=== PATIENT | male | born 1995 | race Caucasian/White ===

== ENCOUNTER 2024-01-16 21:53 | Emergency (ER) | payer OTHER, SELFPAY ==
--- NOTE | ~2024-01-16 | CT_ITS ---
Non-contrast CT scan of the Abdomen and Pelvis Clinical indication: Left lower quadrant pain Technique: 2.5 mm axial scans were obtained through the abdomen and pelvis without intravenous or or al contrast. Dose reduction technique was used on this scan by utilizing automated exposure control a nd iterative reconstruction technique. The dose-length product (DLP) was 802.01 mGy-cm. Findings: Images through the lung bases reveal no abnormalities. There is a 3 mm proximal left ureteral stone (axial image 103), with minimal left hydronephrosis. The re are additional small bilateral nonobstructing renal calculi, measuring up to [address] maximum [address]ame ter. Left renal cyst present. No right ureteral stone or right hydronephrosis. The liver, spleen, pancreas, gallbladder, and adrenals appear normal. There is no aortic aneurysm. There is no evidence of bowel obstruction. Images through the pelvis were performed. There is no evidence of ascites or lymphadenopathy. Urinary bladder unremarkable. No pelvic mass seen. Impression: 3 mm proximal left ureteral stone, with mild left hydronephrosis. Additional small bilateral nonobstructing renal stones, as detailed above. Reviewed, dictated and finalized at [facility]. Impression: 3 mm proximal left ureteral stone, with mild left hydronephrosis. Additional small bilateral nonobstructing renal stones, as detailed above.
[2024-01-16 21:56] VITALS: BP 156/102; PULSE 120; RESP 22; TEMP 36.6; O2SAT 99
[2024-01-16] MEDS: SODIUM CHLORIDE 0.9% IV 1,000 ML 999 ML IV CONT (22:45)
[2024-01-16] MEDS: KETOROLAC 15 MG/ML VIAL (*BKC) IV PUSH (22:45)
[2024-01-16 22:54] LABS: Basophils Absolute Auto 0.1 K/mm3 (0.0-0.1); Basophils Percent Auto 0.8 % (0.2-1.2); Eosinophils Absolute Auto 0.1 K/mm3 (0-0.3); Eosinophils Percent Auto 0.8 % (0-4.4); Hemoglobin 16.5 g/dL (14.0-18.0); Immature Granulocyte Absolute 0.03 K/mm3 (0.00-0.031); Immature Granulocyte Percent A 0.3 % (0-0.5); Lymphocytes Absolute Auto 2.05 K/mm3 (0.9-3.2); Lymphocytes Percent Auto 17.2 % (18.3-44.2); Mean Corpuscular HGB Conc 36.7 g/dl (32-36); Mean Corpuscular Volume 87.4 fl (80-100); Mean Platelet Volume 9.7 fl (7.4-10.4); Monocytes Absolute Auto 0.6 K/mm3 (0.1-0.6); Monocytes Percent Auto 4.7 % (2.6-8.5); Neutrophils Absolute Auto 9.1 K/mm3 (1.3-6.7); Neutrophils Percent Auto 76.2 % (45.5-73.1); Platelet Count Result 268 k/mm3 (150-375); Red Blood Count 5.15 M/mm3 (4.6-6.20); Red Cell Distribution Width 12.6 % (11.5-14.5)
[2024-01-16 23:05] LABS: Alanine Aminotransferase 44 U/L (6-50); Albumin Level 4.9 g/dL (3.5-5.1); Alkaline Phosphatase 56 U/L (38-126); Anion Gap 11 mmol/L (4-12); Aspartate Amino Transferase 34 U/L (17-59); Bilirubin,Total 0.9 mg/dL (0.2-1.3); Blood Urea Nitrogen 11 mg/dL (9-20); Calcium 9.5 mg/dL (8.4-10.2); Carbon Dioxide 27 mmol/L (22-30); Chloride 105 mmol/L (98-107); Estimated CRCL calculation 102 ml/min; Estimated Glomerular Filt Rate > 60; Glucose 107 mg/dL (65-110); Lipase 89 U/L (23-300); Potassium 3.6 mmol/L (3.4-5.0); Sodium 143 mmol/L (137-145)
[2024-01-16 23:41] LABS: Appearance Urine Cloudy (Clear); Bacteria Urine None Seen /hpf; Bilirubin Urine Negative (Negative); Blood Urine 3+ (Negative); Color Urine Yellow (Yellow); Glucose Urine UA Negative (Negative); Ketones Urine Trace mg/dL (Negative); Leukocyte Esterase Ur Trace LEU/UL (Negative); Nitrate Urine Negative (Negative); Non Pathogenic Casts 0-2; Protein Urine 1+ mg/dL (Negative); RBC Urine >100 /hpf (0-2); Specific Grav Ur 1.024 (1.001-1.035); Squamous Epithelial Cell Urine None Seen /hpf (Few)
[2024-01-16 23:44] LABS: Add Urine Microscopic? YES
--- NOTE | 2024-01-17 00:14 | ED.ABDPAIN ---
HPI - Abdominal Pain General Chief Complaint: Abdominal Pain Stated Complaint: Left sided lower abd pain, nausea Time Seen by Provider: 01/16/24 23:16 Source: patient Mode of arrival: ambulatory Limitations: no limitations History of Present Illness HPI narrative: Patient is a 29-year-old male who presents the ED with report of left lower quadrant abdominal pain. Patient reports having dull left-sided abdominal pain throughout the day today. He began having worsening pain throughout his left lower abdomen approximately 2 hours prior to arrival. States pain was very severe and came on suddenly. Very mild radiation of pain to left flank region. Associated with nausea and vomiting. Patient reports history of 1 previous kidney stones and states pain feels similar. Denies difficulty urinating, dysuria, hematuria. Denies fevers. Denies diarrhea or constipation. Related Data Allergies Allergy/AdvReac Type Severity Reaction Status Date / Time lamotrigine [From Lamictal] Allergy Rash Verified 01/16/24 21:55 Review of Systems Review of Systems: CONSTITUTIONAL: Denies fever, chills, or sweats. GASTROINTESTINAL: See HPI. GENITOURINARY: Denies dysuria or hematuria. MUSCULOSKELETAL: See HPI. All systems reviewed & are unremarkable except as noted in HPI and below Exam Narrative: GENERAL: Well appearing, obese with BMI of 31.1, non-toxic, in no acute distress. HEAD: Normocephalic, atraumatic. RESPIRATORY: Airway patent, respirations nonlabored. Clear to auscultation bilaterally, no rales, rhonchi, wheezing. CARDIOVASCULAR: Regular rate and rhythm without murmurs, rubs, or gallops. ABDOMINAL: Soft, very mild tenderness in left lower quadrant. Nondistended. Normoactive BS. No significant CVA tenderness to percussion. MUSCULOSKELETAL: Moves all extremities. No gross deformities. SKIN: Warm, dry, normal color. NEURO: A&O X3. Speech clear. Cranial nerves II-XII grossly intact. Steady gait. No ataxic movements. PSYCHIATRIC: Appropriate mood and affect. Normal interaction. Course Vital Signs Vital signs: Vital Signs Temperature 97.8 F 01/16/24 21:56 Pulse Rate 120 H 01/16/24 21:56 Respiratory Rate 22 H 01/16/24 21:56 Blood Pressure 156/102 H 01/16/24 21:56 Pulse Oximetry 99 01/16/24 21:56 Oxygen Delivery Room Air 01/16/24 21:56 Temperature 97.8 F 01/16/24 21:56 Pulse Rate 120 H 01/16/24 21:56 Respiratory Rate 22 H 01/16/24 21:56 Blood Pressure 156/102 H 01/16/24 21:56 Pulse Oximetry 99 01/16/24 21:56 Oxygen Delivery Room Air 01/16/24 21:56 MDM - Abdominal Pain MDM Narrative Medical decision making narrative: Patient presented to ED with sudden onset of left lower quadrant abdominal pain that began just prior to arrival. History of kidney stones of felt similar. Patient initially mildly tachycardic upon arrival, likely in relation to pain. Fluids initiated. Toradol was given from triage. Upon my evaluation, patient denies any active pain. States he feels much better after Toradol. CBC with white blood cell count of 12.0. CMP with stable electrolytes, stable kidney function. UA with lots of blood, 6-10 white blood cells, no urine bacteria seen. Sent for culture. CT scan of abdomen pelvis was obtained and showing 2 mm left mid ureteral stone. Consistent with exam and clinical picture. Patient was updated on imaging findings. He remains pain-free at this time. Feel he is safe for discharge home close outpatient follow-up. Will send prescriptions for pain medicine, nausea medicine, Flomax for home use. Will provide Urology information for follow-up. Given strict return precautions. He agrees with plan. Discharged in stable condition. Medical Records Attestation: I reviewed the patient's medical records. Lab Data Attestation: I reviewed the patient's lab results. 01/16/24 22:46 01/16/24 22:46 Labs: Lab Results 01/16/24 01/16/24
[2024-01-17] MEDS: SODIUM CHLORIDE 0.9% IV 1,000 ML 999 ML IV CONT (00:27)
[2024-01-17] MEDS: TAMSULOSIN HCL 0.4 MG CAPSULE PO (01:17)
[2024-01-17 01:18] VITALS: BP 136/95; PULSE 105; RESP 15; O2SAT 98
== END 2024-01-17 01:30 | disposition home or self-care (01) ==
PROVIDERS: Emergency Medicine; Emergency Provider Physician Assistant; PCP Nurse Practitioner Family
DX: N13.2 Hydronephrosis with renal and ureteral calculous obstruction (principal)
CPT/HCPCS: 36415; 74176; 80053; 81001; 83690; 85025; 87086; 96361; 96374; 99284; A9270; J1885; J7030

== ENCOUNTER 2025-06-12 17:16 | Emergency (ER) | payer BC, SELFPAY ==
[2025-06-12] VITALS (11 sets, daily range): BP systolic 141–153; BP diastolic 104–110; PULSE 95–133; RESP 9–16; TEMP 36.6–36.8; O2SAT 97–100
--- NOTE | ~2025-06-12 | XR_ITS ---
EXAMINATION: XR chest 2V, 06/12/2025 18:05 DISPATCHER CLERK HISTORY: chest tightness COMPARISON: No comparisons available. Technique: 2 views obtained. Findings: The lungs are clear, no effusion. No pneumothorax. Heart is normal size. Mediastinal and hilar contours are within normal limits. Bony thorax no acute abnormality. Impression: No acute cardiopulmonary abnormality. Reviewed, dictated and finalized at location P. ATCHER CLERK Impression: No acute cardiopulmonary abnormality.
--- NOTE | 2025-06-12 17:23 | ECG_ITS ---
Test Date: 2025-06-12 17:41:43 Measurements Intervals [place] Rate: 114 P: 43 VA: 116 QRS: 0 QRSD: 104 T: 29 QT: 332 QTc: 458 Interpretive Statements SINUS TACHYCARDIA WITH SHORT VA INTERVAL INCOMPLETE RIGHT BUNDLE BRANCH BLOCK [90+ ms QRS DURATION, TERMINAL R IN V1/V2, BORDERLINE ECG No previous ECG available for comparison Electronically Signed On 06-13-2025 09:14:32 CURRENCY MACHINE OPERATOR by Darwin Frye M.D.
--- NOTE | 2025-06-12 17:41 | ED_ITS ---
HPI - Chest Pain General Chief Complaint: Chest Pain Stated Complaint: chest pain Time Seen by Provider: 06/12/25 17:23 History of Present Illness HPI narrative: Patient is a 30-year-old male who presents to the ER her chest tightness on his left side, mild shortness of breath, and elevated blood pressure readings. He reports this morning he was ?jolted awake by chest tightness. Patient reports he pre-emptive leak called EMS and when they arrived his blood pressure was 180s over 120s. He reports they also told him his blood sugar was low (in the 50s). Patient reports he started feeling better upon EMS arrival and declined transfer to the ER. Patient reports his symptoms have resumed at this time. He denies any recent fevers, back pain, or abdominal pain. 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 He denies any recent drug, alcohol, or energy drink use. Related Data Allergies Allergy/AdvReac Type Severity Reaction Status Date / Time lamotrigine (From Lamictal) Allergy Rash Verified 01/16/24 21:55 Review of Systems 2 Review of Systems: All systems reviewed & are unremarkable except as noted in HPI and below Exam 2 Narrative: GENERAL: Well appearing, well-nourished, non-toxic, in no acute distress. HEAD: Normocephalic, atraumatic. NECK: Supple. No adenopathy, no masses. RESPIRATORY: Airway patent, respirations nonlabored. Clear to auscultation bilaterally, no rales, rhonchi, wheezing. CARDIOVASCULAR: Tachycardia without murmurs, rubs, or gallops. Peripheral pulses 2+ and equal bilaterally. ABDOMINAL: Soft, nontender, nondistended, no hepatosplenomegaly. Normoactive BS. MUSCULOSKELETAL: Moves all extremities. Strength/ROM intact without gross deformities. SKIN: Warm, dry, normal color. No rashes. NEURO: A&O X3. Speech clear. Cranial nerves II-XII intact. No ataxic movements. PSYCHIATRIC: Appropriate mood and affect. Normal interaction. Course Vital Signs Vital signs: Vital Signs Temperature 36.6 C 06/12/25 17:18 Pulse Rate 133 H 06/12/25 17:18 Blood Pressure 152/110 H 06/12/25 17:18 Pulse Oximetry 97 06/12/25 17:18 Temperature 36.8 C 06/12/25 19:46 Pulse Rate 96 06/12/25 20:45 Respiratory Rate 14 06/12/25 20:45 Blood Pressure 144/108 H 06/12/25 20:31 Pulse Oximetry 98 06/12/25 20:45 Oxygen Delivery Room Air 06/12/25 19:22 MDM - Chest Pain MDM Narrative Medical decision making narrative: Patient is a 30-year-old male who presents to the ER her chest tightness on his left side, mild shortness of breath, and elevated blood pressure readings. He reports this morning he was ?jolted awake by chest tightness. Patient reports he pre-emptive leak called EMS and when they arrived his blood pressure was 180s over 120s. He reports they also told him his blood sugar was low (in the 50s). Patient reports he started feeling better upon EMS arrival and declined transfer to the ER. Patient reports his symptoms have resumed at this time. He denies any recent fevers, back pain, or abdominal pain. 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 He denies any recent drug, alcohol, or energy drink use. Labs Ordered: CBC, CMP, D-dimer, PTT, INR, troponin, TSH, lactic acid, lipase, UA, UDS Imaging Ordered: Chest x-ray Medications Ordered: 1 L normal saline IV bolus Results: Patient's chest x-ray indicates The lungs are clear, no effusion. No pneumothorax. Heart is normal size. Mediastinal and hilar contours are within normal limits. Bony thorax no acute abnormality. Diagnosis: atypical chest pain, hypertension, palpations Risks: HEART score: low risk HEART Score for Major Cardiac Events from [email or web address] on 06/12/2025 All calculations should be rechecked by clinician prior to use RESULT SUMMARY: 1 points Low Score (0-3 points) Risk of MACE of 0.9-1.7%. INPUTS: History ?> 1 = Moderately suspicious EKG ?> 0 = Normal Age ?> 0 = <45 Risk factors ?> 0 = No known risk factors Initial troponin ?> 0 = <Normal limit Consults: cardiology (outpatient), Dr. Frye Patient Education/Shared MDM: Results of lab work and imaging shared with patient. He reports he has not had any continuing symptoms during his stay in the emergency department. Patient strongly advised to maintain hydration status upon discharge and follow-up with his PCP as soon as possible. He reports he already has an appointment set up with his primary care provider on Saturday, in 3 days. Patient will not be discharged home with any new prescriptions. He may follow-up with Cardiology as needed. Strict return precautions provided. Patient verbalized understanding and is in agreement with plan. Vital signs stable at time of discharge. All questions answered. Differential Diagnosis Differential diagnosis: Likely atypical chest pain, st elevation myocardial infarction, costochondritis and other (dehydration) Lab Data Attestation: I reviewed the patient's lab results. 06/12/25 17:47 06/12/25 17:47 Labs: Lab Results 06/12/25 06/12/25 06/12/25 Range/Units 17:47 17:47 17:47 WBC 7.7 (4.5-10.0) K/mm3 RBC 5.32 (4.6-6.20) M/mm3 Hgb 16.7 (14.0-18.0) g/dL Hct 45.8 (42.0-52.0) % MCV 86.1 (80-100) fl MCH 31.4 (26-34) pg MCHC 36.5 H (32-36) g/dl RDW 12.7 (11.5-14.5) % Plt Count 249 (150-375) k/mm3 MPV 9.5 (7.4-10.4) fl Immature Gran % (Auto) 0.3 (0-0.5) % Neut % (Auto) 67.4 (45.5-73.1) % Lymph % (Auto) 23.2 (18.3-44.2) % [place] % (Auto) 6.4 (2.6-8.5) % Eos % (Auto) 1.4 (0-4.4) % Baso % (Auto) 1.3 H (0.2-1.2) % Lymph # (Auto) 1.79 (0.9-3.2) K/mm3 [place] # (Auto) 0.5 (0.1-0.6) K/mm3 Eos # (Auto) 0.1 (0-0.3) K/mm3 Baso # (Auto) 0.1 (0.0-0.1) K/mm3 Abs Immat Gran (auto) 0.02 (0.00-0.031) K/mm3 Absolute Neuts (auto) 5.2 (1.3-6.7) K/mm3 Absolute Nucleated RBC 0.000 (0.0-0.012) K/mm3 Nucleated RBC % 0.0 (0.0-0.2) % PT 13.7 (11.1-14.7) Seconds INR 1.1 APTT 28.0 (22.3-36.8) Seconds D-Dimer < 0.27 Cancelled (<0.48) ug/mL Sodium 137 (137-145) mmol/L Potassium 3.8 (3.4-5.0) mmol/L Chloride 103 (98-107) mmol/L Carbon Dioxide 27 (22-30) mmol/L Anion Gap 7 (4-12) mmol/L BUN 11 (9-20) mg/dL Creatinine 1.00 (0.7-1.3) mg/dL Estim Creat Clear Calc Not Reportable Estimated GFR > 60 (59 - ) Glucose 95 (65-110) mg/dL Lactic Acid (0.7-2.0) mmol/L Calcium 9.7 (8.4-10.2) mg/dL Total Bilirubin 0.9 (0.2-1.3) mg/dL AST 28 (17-59) U/L ALT 30 (6-50) U/L Alkaline Phosphatase 52 (38-126) U/L Troponin I < 0.012 (0.000-0.034) ng/mL NT-Pro-B Natriuret Pep 76 Cancelled (19.9-100) pg/mL Total Protein 7.8 (6.3-8.2) g/dL Albumin 4.6 (3.5-5.1) g/dL Lipase 64 (23-300) U/L TSH (Reflex) 1.800 (0.465-4.68) uIU/mL Urine Color (Yellow) Urine Appearance (Clear) Urine pH (5.0-9.0) Ur Specific [place] (1.001-1.035) Urine Protein (Negative) mg/dL Urine Glucose (UA) (Negative) mg/dL Urine Ketones (Negative) mg/dL Ur Blood (Man) (Negative) Urine Nitrate (Negative) Urine Bilirubin (Negative) Urine Urobilinogen (<2.0) mg/dL Leukocyte Esterase Rfl (Negative) KIKI/UL Urine RBC (0-2) /hpf Urine WBC (0-3) /hpf Ur Squamous Epith Cells (Few) /hpf Urine Bacteria /hpf Urine Casts Urine Opiates Screen (Negative) Urine Methadone Screen (Negative) Ur Barbiturates Screen (Negative) Ur Phencyclidine Scrn (Negative) Ur Amphetamine Screen (Negative) U Benzodiazepines Scrn (Negative) Urine Cocaine Screen (Negative) U Cannabinoids Screen (Negative) Influenza A (RT-PCR) (Negative) Influenza B (RT-PCR) (Negative) RSV (RT-PCR) (Negative) SARS-CoV-2 RNA (RT-PCR) (Negative) 06/12/25 06/12/25 06/12/25 Range/Units 17:51 19:25 20:14 WBC (4.5-10.0) K/mm3 RBC (4.6-6.20) M/mm3 Hgb (14.0-18.0) g/dL Hct (42.0-52.0) % MCV (80-100) fl MCH (26-34) pg MCHC (32-36) g/dl RDW (11.5-14.5) % Plt Count (150-375) k/mm3 MPV (7.4-10.4) fl Immature Gran % (Auto) (0-0.5) % Neut % (Auto) (45.5-73.1) % Lymph % (Auto) (18.3-44.2) % [place] % (Auto) (2.6-8.5) % Eos % (Auto) (0-4.4) % Baso % (Auto) (0.2-1.2) % Lymph # (Auto) (0.9-3.2) K/mm3 [place] # (Auto) (0.1-0.6) K/mm3 Eos # (Auto) (0-0.3) K/mm3 Baso # (Auto) (0.0-0.1) K/mm3 Abs Immat Gran (auto) (0.00-0.031) K/mm3 Absolute Neuts (auto) (1.3-6.7) K/mm3 Absolute Nucleated RBC (0.0-0.012) K/mm3 Nucleated RBC % (0.0-0.2) % PT (11.1-14.7) Seconds INR APTT (22.3-36.8) Seconds D-Dimer (<0.48) ug/mL Sodium (137-145) mmol/L Potassium (3.4-5.0) mmol/L Chloride (98-107) mmol/L Carbon Dioxide (22-30) mmol/L Anion Gap (4-12) mmol/L BUN (9-20) mg/dL Creatinine (0.7-1.3) mg/dL Estim Creat Clear Calc Estimated GFR (59 - ) Glucose (65-110) mg/dL Lactic Acid 1.7 (0.7-2.0) mmol/L Calcium (8.4-10.2) mg/dL Total Bilirubin (0.2-1.3) mg/dL AST (17-59) U/L ALT (6-50) U/L Alkaline Phosphatase (38-126) U/L Troponin I (0.000-0.034) ng/mL NT-Pro-B Natriuret Pep (19.9-100) pg/mL Total Protein (6.3-8.2) g/dL Albumin (3.5-5.1) g/dL Lipase (23-300) U/L TSH (Reflex) (0.465-4.68) uIU/mL Urine Color Yellow (Yellow) Urine Appearance Clear (Clear) Urine pH 7.0 (5.0-9.0) Ur Specific [place] 1.023 (1.001-1.035) Urine Protein Trace (Negative) mg/dL Urine Glucose (UA) Negative (Negative) mg/dL Urine Ketones Trace H (Negative) mg/dL Ur Blood (Man) Negative (Negative) Urine Nitrate Negative (Negative) Urine Bilirubin Negative (Negative) Urine Urobilinogen 1.0 (<2.0) mg/dL Leukocyte Esterase Rfl Trace H (Negative) KIKI/UL Urine RBC 0-2 (0-2) /hpf Urine WBC 0-5 (0-3) /hpf Ur Squamous Epith Cells None seen (Few) /hpf Urine Bacteria None seen /hpf Urine Casts 0-2 Urine Opiates Screen Negative (Negative) Urine Methadone Screen Negative (Negative) Ur Barbiturates Screen Negative (Negative) Ur Phencyclidine Scrn Negative (Negative) Ur Amphetamine Screen Negative (Negative) U Benzodiazepines Scrn Negative (Negative) Urine Cocaine Screen Negative (Negative) U Cannabinoids Screen Negative (Negative) Influenza A (RT-PCR) Negative (Negative) Influenza B (RT-PCR) Negative (Negative) RSV (RT-PCR) Negative (Negative) SARS-CoV-2 RNA (RT-PCR) Negative (Negative) 06/12/25 Range/Units 20:22 WBC (4.5-10.0) K/mm3 RBC (4.6-6.20) M/mm3 Hgb (14.0-18.0) g/dL Hct (42.0-52.0) % MCV (80-100) fl MCH (26-34) pg MCHC (32-36) g/dl RDW (11.5-14.5) % Plt Count (150-375) k/mm3 MPV (7.4-10.4) fl Immature Gran % (Auto) (0-0.5) % Neut % (Auto) (45.5-73.1) % Lymph % (Auto) (18.3-44.2) % [place] % (Auto) (2.6-8.5) % Eos % (Auto) (0-4.4) % Baso % (Auto) (0.2-1.2) % Lymph # (Auto) (0.9-3.2) K/mm3 [place] # (Auto) (0.1-0.6) K/mm3 Eos # (Auto) (0-0.3) K/mm3 Baso # (Auto) (0.0-0.1) K/mm3 Abs Immat Gran (auto) (0.00-0.031) K/mm3 Absolute Neuts (auto) (1.3-6.7) K/mm3 Absolute Nucleated RBC (0.0-0.012) K/mm3 Nucleated RBC % (0.0-0.2) % PT (11.1-14.7) Seconds INR APTT (22.3-36.8) Seconds D-Dimer (<0.48) ug/mL Sodium (137-145) mmol/L Potassium (3.4-5.0) mmol/L Chloride (98-107) mmol/L Carbon Dioxide (22-30) mmol/L Anion Gap (4-12) mmol/L BUN (9-20) mg/dL Creatinine (0.7-1.3) mg/dL Estim Creat Clear Calc Estimated GFR (59 - ) Glucose (65-110) mg/dL Lactic Acid (0.7-2.0) mmol/L Calcium (8.4-10.2) mg/dL Total Bilirubin (0.2-1.3) mg/dL AST (17-59) U/L ALT (6-50) U/L Alkaline Phosphatase (38-126) U/L Troponin I Pending (0.000-0.034) ng/mL NT-Pro-B Natriuret Pep (19.9-100) pg/mL Total Protein (6.3-8.2) g/dL Albumin (3.5-5.1) g/dL Lipase (23-300) U/L TSH (Reflex) (0.465-4.68) uIU/mL Urine Color (Yellow) Urine Appearance (Clear) Urine pH (5.0-9.0) Ur Specific [place] (1.001-1.035) Urine Protein (Negative) mg/dL Urine Glucose (UA) (Negative) mg/dL Urine Ketones (Negative) mg/dL Ur Blood (Man) (Negative) Urine Nitrate (Negative) Urine Bilirubin (Negative) Urine Urobilinogen (<2.0) mg/dL Leukocyte Esterase Rfl (Negative) KIKI/UL Urine RBC (0-2) /hpf Urine WBC (0-3) /hpf Ur Squamous Epith Cells (Few) /hpf Urine Bacteria /hpf Urine Casts Urine Opiates Screen (Negative) Urine Methadone Screen (Negative) Ur Barbiturates Screen (Negative) Ur Phencyclidine Scrn (Negative) Ur Amphetamine Screen (Negative) U Benzodiazepines Scrn (Negative) Urine Cocaine Screen (Negative) U Cannabinoids Screen (Negative) Influenza A (RT-PCR) (Negative) Influenza B (RT-PCR) (Negative) RSV (RT-PCR) (Negative) SARS-CoV-2 RNA (RT-PCR) (Negative) Imaging Data Attestation: I personally reviewed and interpreted this imaging study as follows: Radiologist's impression: Impressions Chest X-Ray 06/12/25 18:29 Impression: No acute cardiopulmonary abnormality. Discharge Plan Discharge Clinical Impression: Atypical chest pain Patient Disposition: Home Condition: Stable Instructions: Antibiotic Form, Noncardiac Chest Pain (ED) Patient Language: Romansh Prescriptions: No Action hydrocodone-acetaminophen 5-325 mg tablet 1 tablet PO Q6H PRN (Reason: pain) Qty: 10 0RF tamsulosin [Flomax] 0.4 mg capsule 0.4 mg PO DAILY Qty: 7 0RF ondansetron 4 mg tablet,disintegrating 4 mg PO Q8H PRN (Reason: nausea and vomiting) Qty: 15 0RF Follow-up/Referrals: KELSIE,LIZETT DE JESUS [Primary Care Provider]
[2025-06-12 17:56] LABS: Hematocrit 45.8 % (42.0-52.0); Hemoglobin 16.7 g/dL (14.0-18.0); Immature Granulocyte Percent A 0.3 % (0-0.5); Lymphocytes Absolute Auto 1.79 K/mm3 (0.9-3.2); Mean Corpuscular HGB Conc 36.5 g/dl (32-36); Mean Corpuscular Hemoglobin 31.4 pg (26-34); Mean Corpuscular Volume 86.1 fl (80-100); Nucleated Red Blood Cells Absolute Auto 0.000 K/mm3 (0.0-0.012); Nucleated Red Blood Cells Perc 0.0 % (0.0-0.2); Platelet Count Result 249 k/mm3 (150-375); Red Blood Count 5.32 M/mm3 (4.6-6.20); White Blood Count 7.7 K/mm3 (4.5-10.0)
[2025-06-12 18:08] LABS: INR 1.1; Prothrombin Time 13.7 Seconds (11.1-14.7)
[2025-06-12 18:09] LABS: Partial Thromboplastin Time 28.0 Seconds (22.3-36.8)
[2025-06-12 18:10] LABS: Alanine Aminotransferase 30 U/L (6-50); Albumin Level 4.6 g/dL (3.5-5.1); Alkaline Phosphatase 52 U/L (38-126); Anion Gap 7 mmol/L (4-12); Aspartate Amino Transferase 28 U/L (17-59); Bilirubin,Total 0.9 mg/dL (0.2-1.3); Blood Urea Nitrogen 11 mg/dL (9-20); Calcium 9.7 mg/dL (8.4-10.2); Carbon Dioxide 27 mmol/L (22-30); Chloride 103 mmol/L (98-107); Estimated Glomerular Filt Rate > 60; Glucose 95 mg/dL (65-110); Lipase 64 U/L (23-300); Potassium 3.8 mmol/L (3.4-5.0); Sodium 137 mmol/L (137-145); Total Protein 7.8 g/dL (6.3-8.2)
[2025-06-12 18:20] LABS: NT Pro B Type Natriuretic Pept 76 pg/mL (19.9-100); Troponin I < 0.012 ng/mL (0.000-0.034)
[2025-06-12 18:38] LABS: Thyroid Stimulating Hormone Reflex 1.800 uIU/mL (0.465-4.68)
--- OUTSIDE RECORDS SUMMARY | 2025-06-12 19:13 | XMS_ITS | Encounter Summary ---
Author Organization [facility] Address [facility] [place] [address] Care Team Providers Care Spike Machine Operator Name Role Phone Valery Keith Primary Care Provider Encounter Details Date Type Department Care Team (Late st Contact Info) Description 06/03/2025 Results Follow-Up [facility] Family & Internal Medicine [address] [id number] Valery Keith FNP [address] [place] [address] [phone] XR RIBS RT+PA CHEST Social History Tobacco Use Types Packs/Day Years Used Date Smoking Tobacco: Never Smokeless Tobacco: Never Alcohol Use Standard Drinks/Week Comments Yes 0 (1 standard drink = 0.6 oz pure alcohol) Rarely, only during family gatherings. PHQ-2 Answer Date Recorded Patient Health Questionnaire-2 Score 2 06/07/2025 Sex and Gender Information Value Date Recorded Sex Assigned at Male 02/11/2025 11:35 AM CDT Legal Sex Male 9:39 PM CDT Gender Identity Not on file Sexual Orientation Not on file documented as of this encounter Progress Notes * NAKIA Flores - 06/03/2025 10:02 AM CST No acute findings noted in imaging Did note a right kidney stone- he should f/u with his urologist NG CONSULTANT documented in this encounter Plan of Treatment Upcoming Encounters Date Type Department Care Team (Late st Contact Info) Description 11/29/2025 8:00 AM CDT Office Visit [facility] Multispecialty Care - [facility] [address] [facility], [address] [place] [address] Luna Grullon PA [address] [facility] [address] [place] [address] documented as of this encounter Visit Diagnoses Not on filedocumented in this encounter Additional Health Concerns Assessment Noted Time PHQ-9 Depression Total Score: 4 03/30/20 22 11:42 AM CDT documented as of this encounter Care Teams Spike Machine Operator Relationship Specialty Start Date End Date Valery Keith FNP [address] [place] [phone] PCP - General Nurse Practitioner Family 08/07/19 documented as of this encounter
--- OUTSIDE RECORDS SUMMARY | 2025-06-12 19:13 | XMS_ITS | Clinical Summary ---
Author Organization [facility] Address [address] [place] [address] Care Team Providers Care Slot Shift Supervisor Name Role Phone Liza Iglesias NAKIA Primary Care Provider [phone] Allergies Active Allergy Reactions Criticality Noted Date Comments Lamotrigine Unknown 07/01/2017 Medications albuterol sulfate HFA 108 (90 Base) MCG/ACT inhaler Inhale 2 puffs into the lungs every 4 (four) hours as needed. Active amitriptyline (ELAVIL) 10 MG tabletIndication s:Chronic migraine without aura without status migrainosus, not intractable Take 1 tablet (10 mg total) by mouth nightly at bedtime. at bedtime 90 tablet 3 4 Active tamsulosin (FLOMAX) 0.4 MG Cap TAKE 1 CAPSULE BY MOUTH EVERY DAY IF STONE PAIN 5 Active omeprazole (PRILOSEC) 20 MG capsuleIndicatio ns:Gastroesophag eal reflux disease, unspecified whether esophagitis present Take 1 capsule (20 mg total) by mouth daily. 90 capsule 3 5 Active cyclobenzaprine (FLEXERIL) 5 MG tabletIndication s:Right flank pain,Spasm of thoracic back muscle Take 1-2 tablets (5-10 mg total) by mouth nightly as needed for Muscle Spasms. 30 tablet 5 Active cyclobenzaprine (FLEXERIL) 5 MG tabletIndication s:Flank pain,Spasm of thoracic back muscle Take 1-2 tablets (5-10 mg total) by mouth nightly as needed for Muscle Spasms. 30 tablet 5 05/20/20 25 Discontinu ed(Reorder ) Active Problems Problem Noted Date Diagnosed Date Multiple renal cysts 05/31/2025 Flank pain 02/11/2025 Spasm of thoracic back muscle 02/11/2025 Elevated blood pressure read ing in office without diagnosis of hypertension 01/22/2023 COVID-19 vaccine series completed 03/31/2021 Vitamin D deficiency 03/31/2021 Vitamin B 12 deficiency 03/31/2021 Class 1 obesity due to exces s calories without serious comorbidity with body mass index (BMI) of 33.0 to 33.9 in adult 03/31/2021 Attention deficit hyperactiv ity disorder (ADHD), predominantly inattentive type 09/09/2019 Asthma 07/01/2017 GERD (gastroesophageal reflux disease) 7 Migraine 07/01/2017 Resolved Problems Problem Noted Date Diagnosed Date Resolved Date Ankle mass, left 02/11/2025 05/20/2025 Encounter for vitamin deficiency screening 08/12/2019 03/25/2020 Encounters Date Type Department Care Team Description 06/07/2025 11:40 AM CELLAR PUMPER Office Visit [facility] - [address], [address] [place] [address] Liza Iglesias FNP [place], [place], [place] Abdominal Pain 06/07/2025 Travel 06/03/2025 Results Follow-Up [facility] [address] [phone] Liza Iglesias FNP XR RIBS RT+PA CHEST 05/31/2025 8:40 AM CELLAR PUMPER Office Visit [facility] [address] [address] Liza Iglesias FNP Flank Pain (Patient presenting to the office today to f/u on Right flank pain- reports the sx have not changed too much ); Constipation (Patient was also have episodes of constipation followed by diarrhea the omeprazole that he started after last visit- seems to help with he BM's but still having flank discomfort ); Diarrhea 05/31/2025 Travel 05/26/2025 Scan [facility] INFO [facility] Scanned, [facility] 05/20/2025 11:20 AM CELLAR PUMPER Office Visit [address] [address] Liza Iglesias FNP Pain (Patient c/o ongoing R flank pain and abdominal discomfort. ) 05/20/2025 Travel 05/03/2025 1:40 PM CDT Allied Health/Nurse Visit [address] [address] Liza Iglesias FNP Allied Health Visit (HPV) 05/03/2025 Travel 04/07/2025 Scan [facility] Scanned, [facility] 03/29/2025 Results Follow-Up [address] [address] ABD WO CON 03/26/2025 4:26 PM CDT - 03/26/2025 11:59 PM CDT Hospital Encounter [facility] [address] [place] [address] Liza Iglesias FNP Discharge Disposition: Home or Self Care (Routine Discharge) 03/26/2025 Travel 03/17/[address] [address] Liza Iglesias FNP Orders from Last 3 Months Immunizations Immunization Administration Dates Next Due Flucelvax 2 YRS+ (Multi-Dose Vial) 07/10/2018 Fluzone (IIV3, Trivalent, 0.5 ML Prefilled Syrin ge) 05/31/2025,06/09/2024 Fluzone 6 Months+ Quad (0.5 mL Prefilled Syringe ) 08/07/2019 HPV GARDASIL 9-VALENT 05/03/2025,03/08/2025 Influenza Adult (Generic) 07/10/2018,08/22/2016 Pneumococcal (Prevnar 20) 03/08/2025 Tdap (Adacel) 01/22/2023 Family History Medical History Relation Comments Cancer Maternal Grandfather Cancer Maternal Grandmother Heart Disease Mother Relation Status Comments Maternal Grandfather Maternal Grandmother Mother Social History Tobacco Use Types Packs/Day Years Used Date Smoking Tobacco: Never Smokeless Tobacco: Never Tobacco Cessation:Counseling Given: Not Answered Alcohol Use Standard Drinks/Week Comments Yes 0 (1 standard drink = 0.6 oz pure alcohol) Rarely, only during family gatherings. PHQ-2 Answer Date Recorded Patient Health Questionnaire-2 Score 2 06/07/2025 Sex and Gender Information Value Date Recorded Sex Assigned at Male 02/11/2025 11:35 AM CDT Legal Sex Male 9:39 PM CDT Gender Identity Not on file Sexual Orientation Not on file Last Filed Vital Signs Vital Sign Reading Time Taken Comments Blood Pressure 152/90 06/07/2025 12:16 PM CELLAR PUMPER Pulse 118 06/07/2025 11:46 AM CELLAR PUMPER Temperature 36.8 C (98.2 F) 06/07/2025 11:46 AM CELLAR PUMPER Respiratory Rate 20 06/07/2025 11:46 AM CELLAR PUMPER Oxygen Saturation 98% 06/07/2025 11:46 AM CELLAR PUMPER Inhaled Oxygen Concentration - - Weight 95.7 kg (211 lb) 06/07/2025 11:46 AM CELLAR PUMPER Height 170.2 cm (5' 7) 06/07/2025 11:46 AM CELLAR PUMPER Body Mass Index 33.05 06/07/2025 11:46 AM CELLAR PUMPER Plan of Treatment Upcoming Encounters Date Type Department Care Team (Late st Contact Info) Description 11/29/2025 8:00 AM CDT Office Visit [facility] Multispecialty Care - [facility] [address] [facility] [address] [place] [phone] Luna Grullon PA [address] [facility] [address] [place] [phone] Health Maintenance Due Date Last Done Comments Annual Physical 03/30/2023 03/30/2022, 03/31/2021 COVID-19 Vaccine ( season) 2025 01/19/2022, 12/01/2020, 11/02/2020 Hepatitis B Vaccines (1 of 3 - 19+ 3-dose series) 06/19/2025 Postponed from 01/16/2015 (Future Appointment) Hepatitis C 06/23/2025 Postponed from 01/16/2014 (Future Appointment) HPV Vaccines (3 - 3-dose SCDM series) 09/08/2025 05/03/2025, 03/08/2025 DTaP, Tdap and Td Vaccines (2 - Td or Tdap) 01/22/2033 01/22/2023 Pneumococcal Vaccine: Pediatrics (0 to 5 Years) and At-Risk Patients (6 to 49 Years) Completed 03/08/2025 Influenza Adult Completed 05/31/2025, 05/16, 08/07/2019, Additional history exists PHQ-2 (Physician Hewitt) Completed 06/07/2025 Hepatitis A Vaccines Aged Out No long er eligible based on patient's age to complete this topic Meningococcal B Vaccine Aged Out No l onger eligible based on patient's age to complete this topic Meningococcal Vaccine Aged Out No kika jade eligible based on patient's age to complete this topic RSV Immunizations Under 20 Months Aged Out No longer eligible based on patient's age to complete this topic Procedures Procedure Name Priority Date/Time Associated Diagnosis Comments XR RIBS RT+PA CHEST Routine 05/31/2025 9 :39 AM CELLAR PUMPER Rib pain on right side CT ABD WO CON Routine 03/26/2025 4:56 PM CDT RUQ abdominal pain Abnormal finding on imaging from Last 3 Months Results * XR RIBS RT+PA CHEST (05/31/2025 9:39 AM CELLAR PUMPER) Anatomical Region Laterality Modality Chest Radiographic Denisha ging 06/02/2025 3:27 PM CELLAR PUMPER Impressions 06/02/2025 3:29 PM CELLAR PUMPER IMPRESSION: 1. No radiographic evidence of active chest disease. 2. No radiographic abnormality involving the right ribs. 3. Probable right intrarenal calculus. Ordered By: LIZA IGLESIAS Interpreted By: Edgard Shankar MD, 06/02/2025 3:27 PM Narrative 06/02/2025 3:29 PM CELLAR PUMPER [facility] Internal [address] [address] Examination: XR RIBS RT+PA CHEST Exam time: 05/31/2025 9:27 AM Clinical history: Right lower rib pain. No known injury. Comparison: No prior exam Technique: Upright PA views of the chest. AP and oblique views right ribs. Findings: Cardiac silhouette and pulmonary vasculature are within normal limits. Lungs appear clear. No evidence of pleural effusion. No evidence of bronchial wall thickening or abnormal pulmonary interstitium. There is no evidence of fracture or focal bone abnormality involving the right ribs. No evidence of bone destructive changes or abnormal periosteal reactions involving the right ribs. There is a calcification which measures approximately 4 mm projecting in the expected region of the inferior pole right kidney. This would most likely represent a right intrarenal calculus. Procedure Note Edgard Shankar MD - 06/02/2025 [facility] [address] [address] Examination: XR RIBS RT+PA CHEST Exam time: 05/31/2025 9:27 AM Clinical history: Right lower rib pain. No known injury. Comparison: No prior exam Technique: Upright PA views of the chest. AP and oblique views rightribs. Findings: Cardiac silhouette and pulmonary vasculature are within normallimits. Lungs appear clear. No evidence of pleural effusion. No evidenceof bronchial wall thickening or abnormal pulmonary interstitium. There is no evidence of fracture or focal bone abnormality involving theright ribs. No evidence of bone destructive changes or abnormal periostealreactions involving the right ribs. There is a calcification which measures approximately 4 mm projecting inthe expected region of the inferior pole right kidney. This would mostlikely represent a right intrarenal calculus. IMPRESSION: 1. No radiographic evidence of active chest disease. 2. No radiographic abnormality involving the right ribs. 3. Probable right intrarenal calculus. Ordered By: LIZA IGLESIAS Interpreted By: Edgard Shankar MD, 06/02/2025 3:27 PM Liza Blueashely [facility] Final Result * CT ABD WO CON (03/26/2025 4:56 PM CDT) Anatomical Region Laterality Modality Abdomen Computed Tomogra phy 03/29/2025 8:05 AM CDT Impressions 03/29/2025 10:36 AM CDT Impression: 1. Slight increase in size of bilateral kidney cystic foci. Limited evaluation on this noncontrast study for the evaluation of septations however, these 2 areas measure approximately water density which likely represents bilateral renal cysts. 2. Two right kidney stones with no evidence of hydronephrosis. Preliminary: Jarad De La Rosa MD03/29/2025 10:31 AM The attending radiologist has reviewed the image(s) and agrees with the content of this report. Referred By: LIZA IGLESIAS Interpreted By: Jarad De La Rosa MD, 03/29/2025 8:05 AM Narrative 03/29/2025 10:36 [place] [address] Examination: CT abdomen without IV contrast. Exam time: 03/26/2025 4:45 PM Clinical Information: Follow-up renal lesion seen on ultrasound 03/10/25 Comparison: Abdominal ultrasound 03/10/2025, CT abdomen pelvis 02/14/2022 Technique: IV contrast: None Oral contrast: None. Technical comments: Standard technique with sagittal and coronal reconstructions. Dose reduction: This CT exam was performed using dose lowering techniques, which may include, but is not limited to, dose reduction technique, automated exposure control, and/or the use of iterative reconstruction, in accordance with ALARA (As Low As Reasonably Achievable)/Image Gently principle. Findings: LOWER CHEST Heart is normal in size.The visualized portion of the lung bases demonstrate dependent atelectasis. No suspicious pulmonary nodules. No pleural or pericardial effusions. UPPER ABDOMEN Liver and bile ducts: The liver is normal in both size and contour. Hepatic steatosis.No focal liver lesion. No biliary dilatation. Gallbladder: No gallbladder wall thickening or pericholecystic fluid. Pancreas: No peripancreatic inflammation. Spleen: The spleen is normal in size. RETROPERITONEUM Adrenals: The adrenal glands are normal in appearance. Kidneys: The kidneys have normal morphology.2 right kidney stones. No evidence of hydronephrosis. There is a approximately 1.6 x 2.1 cm right kidney lesion, measuring slightly above water density; in the transverse dimension previously measured approximately 1 cm. There is also a left approximately 4.1 x 3.2 cm the lesion, measuring water density; this previously measured 3 cm in transverse dimension. Lymph nodes: No lymphadenopathy in the abdomen or pelvis. BOWEL AND PERITONEUM Stomach:Normal morphology of the stomach. Bowel: Normal in caliber and wall thickness. Appendix:The appendix is normal. Free air or fluid: None. VASCULATURE The abdominal aorta is normal in caliber. BONES/SOFT TISSUES No fracture or destructive osseous lesion is identified. No displaced rib fractures. Procedure Note Jeramy Mathur MD - 03/29/2025 [place] [id number] Examination: CT abdomen without IV contrast. Exam time: 03/26/2025 4:45 PM Clinical Information: Follow-up renal lesion seen on ultrasound 03/10/25 Comparison: Abdominal ultrasound 03/10/2025, CT abdomen pelvis 02/14/2022 Technique: IV contrast: None Oral contrast: None. Technical comments: Standard technique with sagittal and coronalreconstructions. Dose reduction: This CT exam was performed using dose lowering techniques,which may include, but is not limited to, dose reduction technique,automated exposure control, and/or the use of iterative reconstruction, inaccordance with ALARA (As Low As Reasonably Achievable)/Image Gentlyprinciple. Findings: LOWER CHEST Heart is normal in size.The visualized portion of the lung basesdemonstrate dependent atelectasis. No suspicious pulmonary nodules. Nopleural or pericardial effusions. UPPER ABDOMEN Liver and bile ducts: The liver is normal in both size and contour.Hepatic steatosis.No focal liver lesion. No biliary dilatation. Gallbladder: No gallbladder wall thickening or pericholecystic fluid. Pancreas: No peripancreatic inflammation. Spleen: The spleen is normal in size. RETROPERITONEUM Adrenals: The adrenal glands are normal in appearance. Kidneys: The kidneys have normal morphology.2 right kidney stones. Noevidence of hydronephrosis. There is a approximately 1.6 x 2.1 cm rightkidney lesion, measuring slightly above water density; in the transversedimension previously measured approximately 1 cm. There is also a leftapproximately 4.1 x 3.2 cm the lesion, measuring water density; thispreviously measured 3 cm in transverse dimension. Lymph nodes: No lymphadenopathy in the abdomen or pelvis. BOWEL AND PERITONEUM Stomach:Normal morphology of the stomach. Bowel: Normal in caliber and wall thickness. Appendix:The appendix is normal. Free air or fluid: None. VASCULATURE The abdominal aorta is normal in caliber. BONES/SOFT TISSUES No fracture or destructive osseous lesion is identified. No displaced ribfractures. Impression: 1. Slight increase in size of bilateral kidney cystic foci. Limitedevaluation on this noncontrast study for the evaluation of septationshowever, these 2 areas measure approximately water density which likelyrepresents bilateral renal cysts. 2. Two right kidney stones with no evidence of hydronephrosis. Preliminary: Jarad De La Rosa MD03/29/2025 10:31 AM The attending radiologist has reviewed the image(s) and agrees with thecontent of this report. Referred By: LIZA IGLESIAS Interpreted By: Jarad De La Rosa MD, 03/29/2025 8:05 AM Liza Iglesias [facility] Final Result from Last 3 Months Insurance [facility] Care Teams Slot Shift Supervisor Relationship Specialty Start Date End Date Liza Iglesias FNP [address] [place] [id number] PCP - General Nurse Practitioner Family 08/07/19
--- OUTSIDE RECORDS SUMMARY | 2025-06-12 19:13 | XMS_ITS | Clinical Summary ---
Author Organization [facility] Address [address] [place] [address] Care Team Providers Care Hockey Player Name Role Phone Unknown, Provider Primary Care Provider Unavaila ble Source Comments [facility],non-owned Affiliates and Associated Physician Practices is amultiple site organization consisting of ambulatory clinics and hospital sitesin [place], [place], [place] and [place]. This disclosure is being madepursuant to the Care Everywhere program and may not contain all information available regarding this patient. Last updated 18.[facility] Immunizations Immunization Administration Dates Next Due INFLUENZA VACCINE, QUADR. 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 MOLDER Gender Identity Not on file Sexual Orientation Not on file Plan of Treatment Health Maintenance Due Date Last Done Comments HIV SCREENING 01/16/2011 HEPATITIS C SCREENING 01/12/2014 DTAP/TDAP/TD VACCINES (1 - Tdap) 01/16/2015 HEPATITIS B VACCINE (1 of 3 - 19+ 3-dose series) 01/16/2015 HPV VACCINE (1 - 3-dose SCDM series) 01/16/2023 DEPRESSION SCREENING 07/15/2024 COVID-19 VACCINE (1 - 2024-2 6 season) 2025 INFLUENZA VACCINE (#1) 2025 08/22/2016 ZOSTER VACCINE (1 of 2) 01/16/2046 HIB VACCINE Aged Out No longer eligi ble based on patient's age to complete this topic MENINGOCOCCAL (Group B) VACC INE SHARED DECISION-MAKING Aged Out No longer eligibl e based on patient's age to complete this topic MENINGOCOCCAL GROUPS A/C/Y/W VACCINE Aged Out No longer eligible b ased on patient's age to complete this topic PNEUMOCOCCAL VACCINE Aged Out No long er eligible based on patient's age to complete [place] [id number] Care Teams Hockey Player Relationship Specialty Start Date End Date Unknown, Provider PCP - General 08/22/16
[2025-06-12] MEDS: SODIUM CHLORIDE 0.9% IV 1,000 ML 999 ML IV CONT (19:31)
[2025-06-12 19:50] LABS: Add Urine Microscopic? YES; Appearance Urine Clear (Clear); Glucose Urine UA Negative (Negative); Leukocyte Esterase Ur Trace LEU/UL (Negative); Nitrate Urine Negative (Negative); Non Pathogenic Casts 0-2; Specific Grav Ur 1.023 (1.001-1.035)
[2025-06-12 20:16] LABS: Cannabinoid Screen Urine Negative (Negative)
[2025-06-12 20:56] LABS: Influenza A QL RT-PCR Negative (Negative); Influenza B QL RT-PCR Negative (Negative); RSV RNA, RT-PCR Negative (Negative); SARS-CoV-2 RNA PCR Negative (Negative)
[2025-06-12 21:00] LABS: Troponin I < 0.012 ng/mL (0.000-0.034)
== END 2025-06-12 21:13 | disposition home or self-care (01) ==
PROVIDERS: Emergency Medicine; Emergency Provider Registered Nurse; PCP Nurse Practitioner Family
DX: R07.89 Other chest pain (principal); Z20.822 Contact with and (suspected) exposure to COVID-19; R00.0 Tachycardia, unspecified; I45.10 Unspecified right bundle-branch block
CPT/HCPCS: 36415; 71046; 80053; 80307; 81001; 83605; 83690; 83880; 84443; 84484; 85025; 85380; 85610; 85730; 87637; 93005; 96360; 99284; J7030

== ENCOUNTER 2025-07-10 16:15 | Emergency (ER) | payer BC, SELFPAY ==
[2025-07-10 16:41] VITALS: BP 142/96; PULSE 106; RESP 16; TEMP 36.6; O2SAT 97
--- NOTE | 2025-07-10 17:00 | ED.URI ---
HPI - URI/Sore Throat General Chief Complaint: Upper Respiratory Infection Stated Complaint: Flu like symptoms Time Seen by Provider: 07/10/25 17:01 Source: patient and RN notes reviewed Mode of arrival: ambulatory Limitations: no limitations History of Present Illness HPI Narrative: 30-year-old male presented for complaint of nasal congestion drainage, sore throat and cough. Onset yesterday. endorses exposure to influenza this week. Denies sob, wheezing, n/v/d/f/c. MD elicited complaint: cough Related Data Home Medications ?Medication ?Instructions ?Recorded ?Confirmed ?Last Taken ?Type amitriptyline 10 mg tablet mg 07/10/25 Unknown History lisinopril 10 mg tablet mg 07/10/25 Unknown History omeprazole 20 mg capsule,delayed mg 07/10/25 Unknown History release Allergies Allergy/AdvReac Type Severity Reaction Status Date / Time lamotrigine (From Lamictal) Allergy Rash Verified 07/10/25 16:40 Review of Systems Review of Systems: per HPI Exam Narrative: GENERAL: well-appearing EYES: conjunctivae clear ENT: Mucous membranes moist. TMs pearly goodman with dull light reflex bilaterally; no tragal tenderness. Oropharynx not erythematous without lesions or exudate, no drooling, no hoarseness, no trismus, uvula midline. NECK: Supple. No lymphadenopathy CHEST: Clear to auscultation, breath sounds equal. HEART: Regular rate and rhythm. No murmur heard. SKIN: Warm, dry, scattered round pale/red lesions to right neck c/w fungal rash chronic per pt NEURO: Alert and oriented x3. PSYCH: Normal mood and affect Course Course Level of Care: Express Care Visit Vital Signs Vital signs: Vital Signs Temperature 97.9 F 07/10/25 16:41 Pulse Rate 106 H 07/10/25 16:41 Respiratory Rate 16 07/10/25 16:41 Blood Pressure 142/96 H 07/10/25 16:41 Pulse Oximetry 97 07/10/25 16:41 Oxygen Delivery Room Air 07/10/25 16:41 Temperature 97.9 F 07/10/25 16:41 Pulse Rate 106 H 07/10/25 16:41 Respiratory Rate 16 07/10/25 16:41 Blood Pressure 142/96 H 07/10/25 16:41 Pulse Oximetry 97 07/10/25 16:41 Oxygen Delivery Room Air 07/10/25 16:41 MDM MDM Narrative Medical decision making narrative: Negative flu, COVID, strep. Patient endorses exposure to influenza earlier in the week and would like Tamiflu in case symptoms worsen. Discussed risks/benefits. Discussed physical exam findings. Advised supportive measures and signs/symptoms to go to the ER. Pt is appropriate for outpt treatment and f/u. Differential Diagnosis Differential Diagnosis: Influenza, covid, sinusitis, OM, strep pharyngitis, URI Discharge Plan Discharge Clinical Impression: Viral infection Patient Disposition: Home Condition: Stable Additional Instructions: Your rapid covid/flu test was negative today. It may be too early to detect the virus, therefore we recommend retesting at home in 1-2 days Continue to follow general precautions: frequent handwashing, wear a mask, isolate/social distance, and avoid crowds if you have a fever. You must be fever free for 24 hours without the use of fever reducing medication (Tylenol/ibuprofen) before returning to work/school/crowds. Rapid strep swab was negative today You will be notified in a few days if the culture comes back positive for strep, and appropriate antibiotics will be called in at that time. if symptoms are due to a viral illness, it is not treated with antibiotics. Viral symptoms can be present for up to 10-14 days. Recommendations: Flonase spray and Zyrtec for sinus congestion Cough syrup may cause drowsiness; avoid driving or take it at night time. Tylenol every 8 hours as needed for pain/fever Soft foods, cool liquids, warm tea. Gargle with warm saltwater twice a day. Chloraseptic spray and throat lozenges. Rest and stay hydrated. --Follow up with your PCP --Go to the ER immediately if you cannot swallow your saliva, trouble breathing/wheezing, throat swelling, pain is persistent and severe Tamiflu prescription is sent to the pharmacy. You can start the medication if symptoms worsen and you test positive at home for flu. Side effects include headache, nausea, and vomiting. Patient Language: [place] Prescriptions: New oseltamivir [Tamiflu] 75 mg capsule 75 mg PO Q12H 5 Days Qty: 10 0RF No Action amitriptyline 10 mg tablet lisinopril 10 mg tablet omeprazole 20 mg capsule,delayed release(DR/EC) hydrocodone-acetaminophen 5-325 mg tablet 1 tablet PO Q6H PRN (Reason: pain) Qty: 10 0RF tamsulosin [Flomax] 0.4 mg capsule 0.4 mg PO DAILY Qty: 7 0RF ondansetron 4 mg tablet,disintegrating 4 mg PO Q8H PRN (Reason: nausea and vomiting) Qty: 15 0RF Follow-up/Referrals: UNKNOWN,DOCTOR [Primary Care Provider] Time of Disposition: 17:10
[2025-07-10 17:17] LABS: EDCOVIDSCREEN Negative (Negative); EDINFLUASCREEN Negative (Negative); EDINFLUBSCREEN Negative (Negative); EDSTREPNEGPOS1 Negative (Negative)
== END 2025-07-10 17:15 | disposition home or self-care (01) ==
PROVIDERS: Emergency Provider Nurse Practitioner Family
DX: B34.9 Viral infection, unspecified (principal); Z20.822 Contact with and (suspected) exposure to COVID-19
CPT/HCPCS: 87081; 87426; 87804; 87880; 99213; G0463